=== PATIENT | male | born 1945 | race Two or more races ===

== ENCOUNTER 2023-10-30 09:28 | Observation (INO) | payer OTHER ==
[2023-10-30 10:26] VITALS: BMI 22.1
[2023-10-30] MEDS ORDERED: MECLIZINE HCL 25 MG TABLET (FP) PO ONE (10:49)
[2023-10-30] MEDS ORDERED: MECLIZINE HCL 25 MG TABLET (FP) ONE ×2 (11:22→11:25)
[2023-10-30 11:45] LABS: BASO % 0.7 % (0-2.0); EOS % 0.8 % (0-4.5); HEMATOCRIT 37.8 % (35.4-49); HEMOGLOBIN 12.6 GM/dL (11.7-16.9); LYMPH % 15.4 % (8-40); MCH 28.7 pg (25.7-33.7); MCHC 33.4 g/dl (32.0-35.9); MEAN CELL VOLUME 85.8 fl (80-96); MEAN PLT VOLUME 10.1 fl (7.5-11.1); MONO % 8.4 % (3.8-10.2); NEUT % 74.7 % (42.8-82.8); PLATELET COUNT 219 10^3/uL (134-434); RBC 4.41 M/mm3 (4.00-5.60); WHITE BLOOD COUNT 7.6 K/mm3 (4.0-10.0)
[2023-10-30 11:49] LABS: INR 1.4 (0.83-1.09); PROTHROMBIN TIME (PATIENT) 16.2 SEC (9.7-13.0)
[2023-10-30 11:52] LABS: ACTIVATED PTT 34.7 SECONDS (25.2-36.5)
[2023-10-30 11:53] LABS: POTASSIUM 4.5 mmol/L (3.5-5.1)
[2023-10-30 11:56] LABS: ALBUMIN 3.5 g/dl (3.4-5.0); BLOOD UREA NITROGEN 20.6 mg/dL (7-18); CALCIUM 9.8 mg/dL (8.5-10.1); MAGNESIUM 1.7 mg/dL (1.8-2.4)
[2023-10-30 12:01] LABS: BILIRUBIN,TOTAL 0.5 mg/dL (0.2-1); TOT PROT 7.2 g/dl (6.4-8.2)
[2023-10-30] MEDS ORDERED: FLU VACCINE (FLULAVAL) PF 60 MCG/0.5 ML SYRINGE 2023-2024 IM ONE (21:00)
[2023-10-30] MEDS ORDERED: ONDANSETRON 4 MG/2 ML VIAL IVPUSH PRN (23:17)
[2023-10-30] MEDS ORDERED: MECLIZINE HCL 25 MG TABLET (FP) PO PRN (23:17)
[2023-10-31] MEDS ORDERED: amLODIPine BESYLATE 5 MG TABLET (FP) PO ONE (06:30)
[2023-10-31] MEDS ORDERED: ACETAMINOPHEN 325 MG TABLET (FP) PO ONE (06:30)
[2023-10-31 08:35] LABS: BASO % 0.6 % (0-2.0); EOS % 2.9 % (0-4.5); HEMATOCRIT 38.4 % (35.4-49); HEMOGLOBIN 13.2 GM/dL (11.7-16.9); LYMPH % 26.3 % (8-40); MCH 29.2 pg (25.7-33.7); MCHC 34.3 g/dl (32.0-35.9); MEAN PLT VOLUME 10.5 fl (7.5-11.1); NEUT % 59.2 % (42.8-82.8); PLATELET COUNT 231 10^3/uL (134-434); RBC 4.52 M/mm3 (4.00-5.60); RDW 15.1 % (11.9-15.9); WHITE BLOOD COUNT 6.3 K/mm3 (4.0-10.0)
[2023-10-31 08:51] LABS: POTASSIUM 3.7 mmol/L (3.5-5.1)
[2023-10-31 08:52] LABS: CALCIUM 10.4 mg/dL (8.5-10.1)
[2023-10-31 08:53] LABS: BLOOD UREA NITROGEN 15.9 mg/dL (7-18)
[2023-10-31] MEDS ORDERED: LOSARTAN 50MG/HCTZ 12.5MG 1 TAB PO ONE (10:01)
[2023-10-31] MEDS ORDERED: INSULIN (LEVEMIR) 100 UNITS/ML UNITS SQ SCH (10:15)
[2023-10-31] MEDS: INSULIN (NOVOLOG) ASPART 100 UNITS/ML 10ML VIAL SQ SCH ×3 (11:00→21:15)
[2023-10-31] MEDS: APIXABAN 5 MG TABLET PO SCH ×2 (11:00→21:11)
[2023-10-31] MEDS ORDERED: ACETAMINOPHEN 1000 MG/100 ML BAG IVPB PRN (11:12)
[2023-10-31] MEDS: GABAPENTIN 100 MG CAPSULE PO SCH (12:22)
[2023-10-31] MEDS: metFORMIN HCL 500 MG TABLET (FP) PO SCH (17:41)
[2023-11-01] MEDS: metFORMIN HCL 500 MG TABLET (FP) PO SCH ×2 (06:35→07:21)
[2023-11-01] MEDS: glipiZIDE 5 MG TABLET (FP) PO SCH ×2 (06:36→06:41)
[2023-11-01] MEDS: INSULIN (NOVOLOG) ASPART 100 UNITS/ML 10ML VIAL SQ SCH (06:36)
[2023-11-01] MEDS: GABAPENTIN 100 MG CAPSULE PO SCH (09:24)
[2023-11-01] MEDS: APIXABAN 5 MG TABLET PO SCH (09:24)
[2023-11-01 09:29] VITALS: BP 147/94; PULSE 71; RESP 20; TEMP 98.3
[2023-11-01] MEDS ORDERED: LOSARTAN 50MG/HCTZ 12.5MG 1 TAB PO SCH (10:00)
== END 2023-11-01 11:35 | disposition home or self-care (01) ==
LOC: JER 09:28 → JERBED 13:50 → J4W 16:42
PROVIDERS: ADMIT Internal Medicine; ATTEND Internal Medicine
PROC: 3E023GC Introduction of Other Therapeutic Substance into Muscle, Percutaneous Approach (ICD-10-PCS; principal; 2023-10-30)
DX: E11.9 Type 2 diabetes mellitus without complications (principal); I10 Essential (primary) hypertension; R42 Dizziness and giddiness; M54.16 Radiculopathy, lumbar region; Z23 Encounter for immunization
CPT/HCPCS: 0241U-QW; 36415; 70450-TC; 71045-TC-FY; 80048; 80053; 82962; 83735; 84484; 85025; 85610; 85730; 86850; 86900; 86901; 90686; 93005; 93010; 93880-TC; 93971-TC; 96372; 97116-GP; 97162-GP; 99285-25; G0378